=== PATIENT | female | born 1980 | race Two or more races ===

== ENCOUNTER 2023-07-19 18:43 | Inpatient (IN) | payer BC ==
[~2023-07-19] VITALS: Ht 160 cm; Wt 113.4 kg
[2023-07-19] MEDS ORDERED: ONDANSETRON HCL/PF 4 MG/2 ML VIAL ONE (18:59)
[2023-07-19] MEDS ORDERED: MORPHINE SULFATE INJ 4 MG/ML DISP.SYRIN ONE ×2 (19:00→22:03)
[2023-07-19] MEDS: MORPHINE SULFATE INJ 2 MG/ML DISP.SYRIN IV ONE ×2 (19:01→22:04)
[2023-07-19] MEDS: ONDANSETRON HCL/PF - ER 4 MG/2 ML VIAL IV ONE (19:01)
[2023-07-19] MEDS ORDERED: PROPOFOL 20 ML IV ONE (20:33)
[2023-07-19] MEDS: PROPOFOL 200 MG/20 ML VIAL IV ONE (20:38)
[2023-07-19] MEDS ORDERED: Z GUARD REMEDY 4 OZ OINT TP PRN (23:00)
[2023-07-19 23:03] LABS: BASOPHILS % (AUTO) 0.2 % (0.0-2.0); EOSINOPHILS # (AUTO) 0.1 K/uL (0.0-0.7); EOSINOPHILS % (AUTO) 0.6 % (0.0-6.0); HEMATOCRIT 35 % (33-45); HEMOGLOBIN 11.5 g/dL (11.5-14.8); LYMPHOCYTES # (AUTO) 3.3 K/uL (0.8-4.8); LYMPHOCYTES % (AUTO) 24.4 % (20.0-44.0); MEAN CORPUSCULAR HEMOGLOBIN 30 PG (26.0-33.0); MEAN CORPUSCULAR HGB CONC 33 g/dl (31.0-36.0); MEAN CORPUSCULAR VOLUME 91 fL (82-100); MONOCYTES # (AUTO) 0.7 K/uL (0.1-1.30); MONOCYTES % (AUTO) 5.4 % (2.0-12.0); NEUTROPHILS # (AUTO) 9.4 K/uL (1.8-8.9); NEUTROPHILS % (AUTO) 69.4 % (43.0-81.0); PLATELET COUNT (AUTO) 295 K/uL (150-450); RED CELL DISTRIBUTION WIDTH 14.7 % (11.5-15.0); WHITE BLOOD COUNT (AUTO) 13.5 K/uL (4.3-11.0)
[2023-07-19 23:12] LABS: INR 0.97 (0.91-1.10); PARTIAL THROMBOPLASTIN TIME 26.2 SEC (24.3-34.3); PROTHROMBIN TIME 10.3 SECS (9.2-11.1)
[2023-07-19 23:18] LABS: CALCIUM, SERUM 7.9 mg/dL (8.5-10.1); CREATININE 0.7 mg/dL (0.6-1.3); POTASSIUM 3.6 mmol/L (3.5-5.1)
[2023-07-20] MEDS: IV D5/0.45 NACL 1,000 ML IV PRN (01:20)
[2023-07-20] MEDS: ONDANSETRON HCL/PF 4 MG/2 ML VIAL IVP PRN (01:20)
[2023-07-20] MEDS: PANTOPRAZOLE 40 MG VIAL IV SCH (01:21)
[2023-07-20] MEDS: ENOXAPARIN SODIUM 40 MG/0.4 ML DISP.SYRIN SQ SCH (01:21)
[2023-07-20] MEDS: MORPHINE SULFATE INJ 2 MG/ML DISP.SYRIN IV PRN (01:22)
[2023-07-20 02:53] VITALS: BP 149/74; TEMP 98.8; O2SAT 100
[2023-07-20] MEDS ORDERED: LORA-258 PO (08:12)
[2023-07-20 08:57] VITALS: BP 120/80; TEMP 98.6; O2SAT 99
[2023-07-20 09:46] LABS: BASOPHILS % (AUTO) 0.4 % (0.0-2.0); EOSINOPHILS # (AUTO) 0.1 K/uL (0.0-0.7); EOSINOPHILS % (AUTO) 1.3 % (0.0-6.0); HEMATOCRIT 34 % (33-45); HEMOGLOBIN 11.3 g/dL (11.5-14.8); LYMPHOCYTES # (AUTO) 3.5 K/uL (0.8-4.8); LYMPHOCYTES % (AUTO) 44.8 % (20.0-44.0); MEAN CORPUSCULAR HEMOGLOBIN 30 PG (26.0-33.0); MEAN CORPUSCULAR HGB CONC 33 g/dl (31.0-36.0); MEAN CORPUSCULAR VOLUME 91 fL (82-100); MONOCYTES # (AUTO) 0.6 K/uL (0.1-1.30); MONOCYTES % (AUTO) 7.1 % (2.0-12.0); NEUTROPHILS # (AUTO) 3.6 K/uL (1.8-8.9); NEUTROPHILS % (AUTO) 46.4 % (43.0-81.0); PLATELET COUNT (AUTO) 279 K/uL (150-450); RED BLOOD CELL COUNT(AUTO) 3.76 MIL/uL (4.0-5.2); RED CELL DISTRIBUTION WIDTH 14.4 % (11.5-15.0); WHITE BLOOD COUNT (AUTO) 7.8 K/uL (4.3-11.0)
[2023-07-20 15:15] LABS: CALCIUM, SERUM 7.6 mg/dL (8.5-10.1); CREATININE 0.7 mg/dL (0.6-1.3); MAGNESIUM 1.9 mg/dL (1.8-2.4); PHOSPHORUS 3.2 mg/dL (2.5-4.9); POTASSIUM 3.4 mmol/L (3.5-5.1)
[2023-07-20] MEDS: POTASSIUM CHLORIDE 20 MEQ TAB.PRT.SR PO SCH (15:28)
[2023-07-20 16:37] VITALS: BP 129/82; TEMP 98.2; O2SAT 98
[2023-07-20 20:00] VITALS: BP 138/77; TEMP 98.3; O2SAT 97
[2023-07-21] VITALS (9 sets, daily range): BP systolic 127–146; BP diastolic 76–91; TEMP 96.8–99.3; O2SAT 95–99
[2023-07-21 04:23] LABS: PREGNANCY TEST URINE QUAL NEGATIVE (NEGATIVE)
[2023-07-21 08:04] LABS: BASOPHILS % (AUTO) 0.4 % (0.0-2.0); EOSINOPHILS # (AUTO) 0.1 K/uL (0.0-0.7); EOSINOPHILS % (AUTO) 1.3 % (0.0-6.0); HEMATOCRIT 38 % (33-45); HEMOGLOBIN 12.6 g/dL (11.5-14.8); LYMPHOCYTES # (AUTO) 3.3 K/uL (0.8-4.8); LYMPHOCYTES % (AUTO) 38.9 % (20.0-44.0); MEAN CORPUSCULAR HEMOGLOBIN 30 PG (26.0-33.0); MEAN CORPUSCULAR HGB CONC 33 g/dl (31.0-36.0); MEAN CORPUSCULAR VOLUME 91 fL (82-100); MONOCYTES # (AUTO) 0.6 K/uL (0.1-1.30); MONOCYTES % (AUTO) 6.9 % (2.0-12.0); NEUTROPHILS # (AUTO) 4.5 K/uL (1.8-8.9); NEUTROPHILS % (AUTO) 52.5 % (43.0-81.0); PLATELET COUNT (AUTO) 288 K/uL (150-450); RED BLOOD CELL COUNT(AUTO) 4.19 MIL/uL (4.0-5.2); RED CELL DISTRIBUTION WIDTH 14.5 % (11.5-15.0); WHITE BLOOD COUNT (AUTO) 8.6 K/uL (4.3-11.0)
[2023-07-21 08:12] LABS: CALCIUM, SERUM 7.8 mg/dL (8.5-10.1); CREATININE 0.8 mg/dL (0.6-1.3); PHOSPHORUS 3.3 mg/dL (2.5-4.9); POTASSIUM 3.3 mmol/L (3.5-5.1)
[2023-07-21] MEDS: POTASSIUM CL. PREMIX PERIPHER. 50 ML IV SCH (09:23)
[2023-07-21] MEDS ORDERED: MIDAZOLAM HCL 2 MG/2ML VIAL ONE (10:18)
[2023-07-21] MEDS ORDERED: FENTANYL PF 250MCG/5ML AMPUL ONE (10:18)
[2023-07-21] MEDS ORDERED: FAMOTIDINE/PF INJ 20 MG/2 ML VIAL IV ONE (10:19)
[2023-07-21] MEDS ORDERED: ROCURONIUM BROMIDE 50 MG/5 ML ONE (10:19)
[2023-07-21] MEDS ORDERED: VANCOMYCIN 1 GM VIAL ONE (10:29)
[2023-07-21] MEDS ORDERED: BUPIVACAINE 0.5 % PF 150 MG/30 ML VIAL ONE (10:29)
[2023-07-21] MEDS: IV D5/0.45 NACL W/20 MEQ KCL 1L IV PRN (14:28)
[2023-07-21] MEDS: MORPHINE SULFATE INJ 2 MG/ML DISP.SYRIN IV PRN (17:15)
[2023-07-21] MEDS: ANCEF 1 GM/50 ML D5W IV SCH (18:37)
[2023-07-22 07:30] VITALS: BP 144/71; TEMP 98.1; O2SAT 96
[2023-07-22 07:40] LABS: BASOPHILS % (AUTO) 0.1 % (0.0-2.0); EOSINOPHILS % (AUTO) 0.2 % (0.0-6.0); HEMATOCRIT 31 % (33-45); HEMOGLOBIN 10.6 g/dL (11.5-14.8); MEAN CORPUSCULAR HEMOGLOBIN 30 PG (26.0-33.0); MEAN CORPUSCULAR HGB CONC 34 g/dl (31.0-36.0); MEAN CORPUSCULAR VOLUME 90 fL (82-100); MONOCYTES % (AUTO) 7.5 % (2.0-12.0); NEUTROPHILS % (AUTO) 63.2 % (43.0-81.0); PLATELET COUNT (AUTO) 245 K/uL (150-450); RED BLOOD CELL COUNT(AUTO) 3.49 MIL/uL (4.0-5.2); RED CELL DISTRIBUTION WIDTH 14.4 % (11.5-15.0); WHITE BLOOD COUNT (AUTO) 11.7 K/uL (4.3-11.0)
[2023-07-22 07:41] LABS: LYMPHOCYTES # (AUTO) 3.4 K/uL (0.8-4.8); MONOCYTES # (AUTO) 0.9 K/uL (0.1-1.30); NEUTROPHILS # (AUTO) 7.4 K/uL (1.8-8.9)
[2023-07-22 08:23] LABS: CALCIUM, SERUM 8.2 mg/dL (8.5-10.1); CREATININE 0.6 mg/dL (0.6-1.3); MAGNESIUM 2.1 mg/dL (1.8-2.4); PHOSPHORUS 3.3 mg/dL (2.5-4.9); POTASSIUM 3.6 mmol/L (3.5-5.1)
[2023-07-22] MEDS: HYDROCODONE/APAP 10/325MG TABLET PO PRN (08:48)
[2023-07-22 16:00] VITALS: BP 138/82; TEMP 97.9; O2SAT 92
[2023-07-22 20:00] VITALS: BP 144/80; TEMP 97.8; O2SAT 97
[2023-07-23 07:30] VITALS: BP 146/93; TEMP 98.6; O2SAT 97
[2023-07-23] MEDS: PANTOPRAZOLE 40 MG TABLET.DR PO SCH (08:38)
[2023-07-23] MEDS ORDERED: APIX2.5T PO (11:58)
[2023-07-23 16:00] VITALS: BP 124/101; TEMP 99.5; O2SAT 97
[2023-07-23 20:00] VITALS: BP 136/100; TEMP 99.1; O2SAT 94
[2023-07-23] MEDS: IBUPROFEN 600 MG TABLET PO ONE (22:01)
[2023-07-24 07:00] VITALS: BP 130/88; TEMP 98.8; O2SAT 96
[2023-07-24] MEDS: ACETAMINOPHEN 325 MG TABLET PO PRN (15:56)
[2023-07-24 16:00] VITALS: BP 138/95; TEMP 98.7; O2SAT 94
[2023-07-24 20:00] VITALS: BP 138/67; TEMP 98; O2SAT 96
[2023-07-25 07:30] VITALS: BP 142/105; TEMP 98.7; O2SAT 100
[2023-07-25] MEDS: BISACODYL (5 MG) 5 MG TABLET.DR PO PRN (14:21)
[2023-07-25 16:00] VITALS: BP 123/76; TEMP 99.4; O2SAT 97
[2023-07-25 20:00] VITALS: BP 135/89; TEMP 98.2; O2SAT 99
[2023-07-26 07:00] VITALS: BP 124/88; TEMP 98.1; O2SAT 100
[2023-07-26 08:00] VITALS: BP 124/88; TEMP 98.1; O2SAT 100
[2023-07-26 16:00] VITALS: BP 142/82; TEMP 99.9; O2SAT 99
[2023-07-26 20:00] VITALS: BP 128/76; TEMP 98.2; O2SAT 98
[2023-07-27 07:30] VITALS: BP 125/70; TEMP 98.8; O2SAT 98
[2023-07-27 16:00] VITALS: BP 125/79; TEMP 98.2; O2SAT 100
[2023-07-28 08:00] VITALS: BP 129/74; TEMP 99.1; O2SAT 99
[2023-07-28] MEDS ORDERED: HYDR-4279 PO (14:09)
== END 2023-07-28 15:59 | disposition home health service (06) | DRG 493 ==
LOC: EDBD 18:50 → ER 18:50 → MED 23:28
PROVIDERS: ADMIT Nurse Practitioner Acute Care
PROC: 0SSFXZZ Reposition Right Ankle Joint, External Approach (ICD-10-PCS; 2023-07-19)
PROC: 0QSJ04Z Reposition Right Fibula with Internal Fixation Device, Open Approach (ICD-10-PCS; principal; 2023-07-21)
PROC: 0QSG04Z Reposition Right Tibia with Internal Fixation Device, Open Approach (ICD-10-PCS; 2023-07-21)
DX: S82.841A Displaced bimalleolar fracture of right lower leg, initial encounter for closed fracture (principal); Z68.41 Body mass index [BMI] 40.0-44.9, adult; W01.0XXA Fall on same level from slipping, tripping and stumbling without subsequent striking against object, initial encounter; Z98.84 Bariatric surgery status; E66.9 Obesity, unspecified; F12.90 Cannabis use, unspecified, uncomplicated; S93.04XA Dislocation of right ankle joint, initial encounter; Y93.9 Activity, unspecified; Y92.009 Unspecified place in unspecified non-institutional (private) residence as the place of occurrence of the external cause; Z20.822 Contact with and (suspected) exposure to COVID-19
CPT/HCPCS: 36415; 73590-TC; 73610-TC; 80048-TC; 83735-TC; 84100-TC; 84703-TC; 85025-TC; 85730-TC; 86850-TC; 87081-TC; 97110-TC; 97112-TC; 97116-TC; 97530-TC; A4223; A6402; C1713; C1769; C9113; G0378; G0500; J0330; J0690; J1100; J1650; J1885; J2250; J2270; J2405; J2704; J2765; J3010; J3370; J3480; J3490; J7030; J7060